=== PATIENT | male | born 1985 | race Caucasian/White ===

== ENCOUNTER 2017-09-14 10:46 | Emergency (ER) | payer SELFPAY ==
--- NOTE | 2017-09-14 11:36 | EDM.PDOC ---
ED HPI GENERAL MEDICAL PROBLEM - General Chief Complaint: ENT Problem Stated Complaint: DENTAL COMPLAINT Time Seen by Provider: 09/14/17 11:22 Source of Information: Reports: Patient History Limitations: Reports: No Limitations - History of Present Illness INITIAL COMMENTS - FREE TEXT/NARRATIVE: 32-year-old male presents for evaluation and treatment of dental pain. Patient reports dental pain all started 2 years ago when he was hit at work with a log chain. Sounds like he seen the dentist one time since this occurred. He had a cap Placed to tooth #9. Patient reports he is about 4 days ago he helped significant dental pain across his maxilla. He states that yesterday his face was swollen. He reports pain across his maxilla and extending up into his left ear. No nausea, vomiting or fevers. He states that he has not been feeling well. He has been taking Tylenol and Motrin without much relief. Duration: Day(s): (4) Upper Tooth/Teeth Pain Score (Numeric/FACES): 8 - Related Data Allergies Allergy/AdvReac Type Severity Reaction Status Date / Time diphenhydramine Allergy Rash Verified 09/14/17 11:06 [From Benadryl] ketorolac [From Toradol] Allergy Other Verified 09/14/17 11:06 Home Meds: Home Meds Amoxicillin/Clavulanate K [Augmentin 875 MG/125 MG] 1 tab PO Q12HR #20 tablet [Rx] Chlorhexidine Gluconate 15 ml MM BID #1 bottle 09/14/17 [Rx] Past Medical History HEENT History: Reports: Other (See Below) Other HEENT History: dental issues Genitourinary History: Reports: Other (See Below) Other Genitourinary History: kidney failure Social & Family History - Tobacco Use Smoking Status *Q: Current Every Day Smoker Years of Tobacco use: 20 Packs/Tins Daily: 1 - Caffeine Use Caffeine Use: Reports: Energy Drinks, Soda - Recreational Drug Use Other Recreational Drug Type: 9 years ago did drugs-on a medication now like suboxin ED ROS ENT - Review of Systems Review Of Systems: See Below Constitutional: Reports: Malaise. Denies: Fever, Chills HEENT: Reports: Dental Pain (maxilla), Ear Pain (left ) GI/Abdominal: Denies: Nausea, Vomiting ED EXAM, ENT - Physical Exam Exam: See Below Exam Limited By: No Limitations General Appearance: Alert, WD/WN, No Apparent Distress Eye Exam: Bilateral Eye: Normal Inspection Ears: Normal External Exam, Normal Canal, Normal TMs (right), TM Obscured by Cerumen (left) Nose: Normal Inspection Mouth/Throat: Normal Inspection, Dental Tenderness, Other (gingivitis, multiple carries present; #9 is broken, multiple missing teeth). No: Dental Abcess Neck: Normal Inspection Respiratory/Chest: No Respiratory Distress, Lungs Clear, Normal Breath Sounds Cardiovascular: Normal Peripheral Pulses, Regular Rate, Rhythm, No Murmur Neurological: Alert, Oriented, Normal Cognition Psychiatric: Normal Affect, Normal Mood Skin: Warm, Dry, Normal Color Course - Vital Signs Last Recorded V/S: Last Vital Signs Temp 36.0 C 09/14/17 11:10 Pulse 64 09/14/17 11:10 Resp 20 09/14/17 11:10 BP 119/77 09/14/17 11:10 Pulse Ox 96 09/14/17 11:10 - Orders/Labs/Meds Orders: Active Orders 24 hr Category Date Time Status Ear Irrigation [RC] ASDIRECTED Care 09/14/17 11:40 Active - Re-Assessments/Exams Free Text/Narrative Re-Assessment/Exam: 09/14/17 12:20 I was unable to remove the impacted cerumen to the left ear with an ear curette. Nursing staff was successfully able to remove cerumen from both ears with irrigation. He states at first he felt a little dizzy but this is now improved. I was then able to visualize both tympanic membranes. No infection noted. I'll start him on Augmentin for suspected dental infection and some Peridex for the gingivitis. He is instructed to see dental services as soon as he is able to. Discharge instructions as documented. Departure - Departure Time of Disposition: 12:21 Disposition: Home, Self-Care 01 Clinical Impression: Impacted cerumen of left ear, Dental infection - Discharge Information Prescriptions: Amoxicillin/Clavulanate K [Augmentin 875 MG/125 MG] 1 tab PO Q12HR #20 tablet Chlorhexidine Gluconate 15 ml MM BID #1 bottle Instructions: Earwax Buildup, Dental Abscess, [id number] Referrals: PCP,None [Primary Care Provider] - Forms: ED Department Discharge Additional Instructions: Augmentin 1 tab twice a day for 10 days. Take this medication with food. This is an antibiotic. It can be hard in your stomach. Recommend starting an over the counter probiotic to help reduce side effects. Side effects include upset stomach, nausea and diarrhea. Use the mouth solution twice a day. Swish the solution for 30 seconds and spit. This will help prevent future infection and will help with gingivitis. [id number] Tylenol or Motrin as needed for pain relief. Do not take more than 4 g of Tylenol from all sources in 1 day. Do not take more than 3200 mg of ibuprofen from all sources in one day. may alternate with these medications are maximum pain relief. Follow up with a dentist as soon as you are able superior Please return to the ER if your symptoms change or worsen. - My Orders Last 24 Hours: My Active Orders 09/14/17 11:40 Ear Irrigation [RC] ASDIRECTED - Assessment/Plan Last 24 Hours: My Active Orders 09/14/17 11:40 Ear Irrigation [RC] ASDIRECTED
== END 2017-09-14 12:38 | disposition home or self-care (01) ==
LOC: JD.ED 10:46
DX: K04.7 Periapical abscess without sinus (principal); H61.22 Impacted cerumen, left ear; F17.210 Nicotine dependence, cigarettes, uncomplicated; Z88.6 Allergy status to analgesic agent; Z88.8 Allergy status to other drugs, medicaments and biological substances
CPT/HCPCS: 69209; 69210; 99283; 99283-25

== ENCOUNTER 2017-12-05 07:56 | Emergency (ER) | payer SELFPAY ==
[2017-12-05] MEDS ORDERED: Ondansetron 4 MG/2 ML SDV IVPUSH ONE (08:27)
[2017-12-05] MEDS ORDERED: Sodium Chloride 0.9% 1,000 ML IV SCH (08:30)
--- NOTE | 2017-12-05 08:33 | EDM.PDOC ---
ED HPI GENERAL MEDICAL PROBLEM - General Chief Complaint: Abdominal Pain Stated Complaint: LOWER ABD PAIN Time Seen by Provider: 12/05/17 08:11 Source of Information: Reports: Patient History Limitations: Reports: No Limitations - History of Present Illness INITIAL COMMENTS - FREE TEXT/NARRATIVE: The patient states that he suffers from chronic constipation. He developed abdominal pain with his constipation is past 11/30/2017. He drank half a bottle of milk of magnesia, and had relief of his constipation by Friday morning , 12/01/2017. He states that he took an herbal stool laxative following his bowel movement. He states that he fell while on 12/02/2017, but then on Friday, 2017 he developed bilateral lower abdominal pain, initially greater on the left than the right, but by yesterday morning, 12/04/2017, the pain had migrated to the right lower quadrant, where it remains. The pain does not migrate. It is sharp and crampy in character. It has been constant, but progressively getting worse. He has had nausea since last night, but no emesis. He had diarrhea yesterday, but no bowel movement today. No urinary symptoms. No recent fever. No prior similar symptoms. The patient's last oral solid food was around 22:00 last night. The patient acknowledges that he has a history of heroin and opioid abuse, and therefore does not want to be given opioids. The patient does not have a PCP. Right Lower Abdomen Pain Score (Numeric/FACES): 9 - Related Data Allergies Allergy/AdvReac Type Severity Reaction Status Date / Time diphenhydramine Allergy Rash Verified 12/05/17 08:20 [From Benadryl] ketorolac [From Toradol] Allergy Other Verified 12/05/17 08:20 Home Meds: Home Meds . [No Known Home Meds] 10/18/17 [History] Past Medical History Genitourinary History: Reports: Renal Calculus Psychiatric History: Reports: Addiction (opiates) - Past Surgical History HEENT Surgical History: Reports: Oral Surgery ([place] teeth extraction) Male Surgical History: Reports: Ureteral Stent (many) Social & Family History - Family History Family Medical History: Noncontributory - Tobacco Use Smoking Status *Q: Current Every Day Smoker Years of Tobacco use: 18 Packs/Tins Daily: 1 - Caffeine Use Caffeine Use: Reports: Coffee - Alcohol Use Alcohol Use History: Yes Alcohol Use Frequency: Rarely - Recreational Drug Use Recreational Drug Use: Yes Drug Use in Last 12 Months: No Recreational Drug Type: Reports: Heroin (last 2012), Other (see below) (Opioids , last 2012) Other Recreational Drug Type: states was addicted to Heroin and pain pills, quit 4 yrs ago. - Living Situation & Occupation Living situation: Reports: Single, Alone Occupation: Employed ([employer]) ED ROS GENERAL - Review of Systems Review Of Systems: ROS reveals no pertinent complaints other than HPI. ED EXAM, GI/ABD - Physical Exam Exam: See Below Exam Limited By: No Limitations General Appearance: Alert, WD/WN, Mild Distress (Appears uncomfortable) Eyes: Bilateral: Normal Appearance, EOMI Ears: Normal External Exam, Hearing Grossly Normal Nose: Normal Inspection, No Blood Throat/Mouth: Normal Inspection, Normal Lips, Normal Voice, No Airway Compromise Head: Atraumatic, Normocephalic Neck: Normal Inspection, Full Range of Motion Respiratory/Chest: No Respiratory Distress, Lungs Clear, Normal Breath Sounds, No Accessory Muscle Use Cardiovascular: Normal Peripheral Pulses, Regular Rate, Rhythm, No Gallop, No JVD, No Murmur, No Rub GI/Abdominal Exam: Normal Bowel Sounds (active), Soft, No Organomegaly, No Distention, No Abnormal Bruit, No Mass, Tender (Right lower quadrant only. Nontender elsewhere.) (Male) Exam: Deferred Rectal (Males) Exam: Deferred Back Exam: Normal Inspection, Full Range of Motion. No: CVA Tenderness (L), CVA Tenderness (R) Extremities: Normal Inspection, Normal Range of Motion, No Pedal Edema, Normal Capillary Refill Neurological: Alert, Oriented, Normal Cognition, No Motor/Sensory Deficits Psychiatric: Normal Affect Skin Exam: Warm, Dry, Intact, Normal Color, No Rash, Tattoo(s) (numerous) Course - Vital Signs Last Recorded V/S: Last Vital Signs Temp 36.3 C 12/05/17 08:05 Pulse 84 12/05/17 08:05 Resp 20 12/05/17 08:05 BP 109/79 12/05/17 08:05 Pulse Ox 100 12/05/17 08:05 - Orders/Labs/Meds Orders: Active Orders 24 hr Category Date Time Status Sodium Chloride 0.9% [Normal Saline] 1,000 ml Med 12/05/17 08:30 Active IV ASDIRECTED Medication Orders Sodium Chloride (Normal Saline) 1,000 mls @ 150 mls/hr IV ASDIRECTED GALA Last Admin: 12/05/17 08:35 Dose: 150 mls/hr Labs: Laboratory Tests 12/05/17 12/05/17 12/05/17 Range/Units 08:10 08:10 09:45 WBC 6.93 (4.23-9.07) K/mm3 RBC 5.30 (4.63-6.08) M/mm3 Hgb 15.0 (13.7-17.5) gm/L Hct 45.0 (40.1-51.0) % MCV 84.9 (79.0-92.2) fl MCH 28.3 (25.7-32.2) pg MCHC 33.3 (32.2-35.5) g/dl RDW Std Deviation 38.6 (35.1-43.9) fL Plt Count 146 L (163-337) K/mm3 MPV 10.7 (9.4-12.3) fl Neutrophils % (Manual) 69 H (40-60) % Band Neutrophils % 4 (0-10) % Lymphocytes % (Manual) 25 (20-40) % Atypical Lymphs % 0 % Monocytes % (Manual) 1 L (2-10) % Eosinophils % (Manual) 1 (0.8-7.0) % Basophils % (Manual) 0 L (0.2-1.2) Platelet Estimate Adequate RBC Morph Comment Normal Sodium 140 (136-145) mEq/L Potassium 4.6 (3.5-5.1) mEq/L Chloride 102 (98-107) mEq/L Carbon Dioxide 29 (21-32) mEq/L Anion Gap 13.6 (5-15) BUN 18 (7-18) mg/dL Creatinine 1.1 (0.7-1.3) mg/dL Est Cr Clr Drug Dosing 91.92 mL/min Estimated GFR (MDRD) > 60 (>60) mL/min BUN/Creatinine Ratio 16.4 (14-18) Glucose 94 (74-106) mg/dL Calcium 9.5 (8.5-10.1) mg/dL Total Bilirubin 0.8 (0.2-1.0) mg/dL AST 25 (15-37) U/L ALT 39 (16-63) U/L Alkaline Phosphatase 75 (46-116) U/L Total Protein 7.9 (6.4-8.2) g/dl Albumin 4.3 (3.4-5.0) g/dl Globulin 3.6 gm/dL Albumin/Globulin Ratio 1.2 (1-2) Lipase 61 L (73-393) U/L Urine Color Yellow (Yellow) Urine Appearance Clear (Clear) Urine pH 7.0 (5.0-8.0) Ur Specific [place] 1.015 (1.005-1.030) Urine Protein Negative (Negative) Urine Glucose (UA) Negative (Negative) Urine Ketones Negative (Negative) Urine Occult Blood Negative (Negative) Urine Nitrite Negative (Negative) Urine Bilirubin Negative (Negative) Urine Urobilinogen 0.2 (0.2-1.0) Ur Leukocyte Esterase Negative (Negative) Urine RBC Not seen (0-5) /hpf Urine WBC Not seen (0-5) /hpf Ur Epithelial Cells Not seen (0-5) /hpf Urine Bacteria Not seen (FEW) /hpf Urine Mucus Not seen (FEW) /hpf Meds: Medications Generic Name Dose Route Start Last Admin Trade Name Freq PRN Reason Stop Dose Admin Sodium Chloride 1,000 mls @ 150 mls/hr 12/05/17 08:30 12/05/17 08:35 Normal Saline IV 150 mls/hr ASDIRECTED GALA Administration Discontinued Medications Generic Name Dose Route Start Last Admin Trade Name Freq PRN Reason Stop Dose Admin Diatrizoate Meglum/Diatrizoate Sod 90 ml 12/05/17 09:18 12/05/17 09:34 Gastrografin 37% PO 12/05/17 09:19 90 ml ONETIME ONE Administration Ibuprofen 600 mg 12/05/17 10:35 Motrin PO 12/05/17 10:36 ONETIME ONE Iopamidol 100 ml 12/05/17 09:18 12/05/17 09:34 Isovue-300 (61%) IVPUSH 12/05/17 09:19 100 ml ONETIME ONE Administration Ondansetron HCl 4 mg 12/05/17 08:27 12/05/17 08:34 Zofran IVPUSH 12/05/17 08:28 4 mg ONETIME ONE Administration Sodium Chloride 10 ml 12/05/17 09:18 12/05/17 09:34 Saline Flush FLUSH 12/05/17 09:19 10 ml ONETIME ONE Administration - Re-Assessments/Exams Free Text/Narrative Re-Assessment/Exam: 12/05/17 08:29 With significant right lower quadrant tenderness, I'm concerned about appendicitis. I ordered blood work, urinalysis, and a CT scan of the abdomen and pelvis. I ordered Zofran and IV fluid, however, the patient requests no narcotics, given his history of opioid abuse. Since he reports an allergy to Toradol (causes him to become agitated), at this time, I have no treatment options for his pain, however, the patient states that he does not want anything. 12/05/17 10:24 CT of the abdomen and pelvis with oral and IV contrast is read by Dr. Stinson as: 1. Several loops of small bowel within the lower abdomen show wall thickening. Findings presumably representing a nonspecific enteritis. 2. Appendix is seen and appears normal. 3. Several low density lesions within the upper right lobe of the liver most likely due to minimal cysts. 4. No additional abnormality is seen on CT study of the abdomen and pelvis. 12/05/17 10:37 Test results discussed with the patient. As above, it appears that the patient has enteritis. As he has no fever or elevated WBC count, this is likely viral in etiology. Treatment includes Tylenol or ibuprofen as needed. I explained that antibiotics will not be of benefit. Departure - Departure Time of Disposition: 10:29 Disposition: Home, Self-Care 01 Condition: Good Clinical Impression: Enteritis - Discharge Information Referrals: PCP,None [Primary Care Provider] - Forms: ED Department Discharge Additional Instructions: You were seen in the emergency room for right lower abdominal pain and nausea. Workup in the ER included blood work, a urinalysis, and a CT scan of your abdomen and pelvis. The CT scan found some swelling of some of your small intestine, a condition known as enteritis. This is likely caused by a virus. The remainder of your workup was unremarkable. Unfortunately, there are no medicines to treat viral enteritis - it will have to run its course. We recommend you take [id number] Tylenol or ibuprofen as needed for discomfort. If any other problems, please do not hesitate to return to the ER. - My Orders Last 24 Hours: My Active Orders 12/05/17 08:30 Sodium Chloride 0.9% [Normal Saline] 1,000 ml IV ASDIRECTED - Assessment/Plan Last 24 Hours: My Active Orders 12/05/17 08:30 Sodium Chloride 0.9% [Normal Saline] 1,000 ml IV ASDIRECTED
[2017-12-05] MEDS ORDERED: Iopamidol 612 MG/ML 100 ML Bottle IVPUSH ONE (09:18)
[2017-12-05] MEDS ORDERED: Sodium Chloride 0.9% 10 ML Syringe FLUSH ONE (09:18)
[2017-12-05] MEDS ORDERED: Diatrizoate Meglumine/Diatrizoate Sodium 37% 120 ML Bottle PO ONE (09:18)
--- NOTE | 2017-12-05 10:02 | CT ---
CT abdomen and pelvis Technique: Multiple axial sections were obtained from above the dome of the diaphragm inferiorly through the pubic symphysis. Intravenous and oral contrast was utilized. Delayed images were also obtained through the bladder. Comparison: No previous CT exam. Findings: Appendix is seen and appears normal in size. Visualized lung bases are clear. Several small low-density lesions are seen within the upper right lobe of the liver which are nonspecific due to their small size but most likely represent minimal cysts. No additional abnormality is seen within the liver. Spleen measures at the upper limits of normal at 12.9 cm. Kidneys show symmetric contrast enhancement without hydronephrosis or mass. Delayed images shows contrast within the distal ureters and within the bladder. Pancreas is within normal limits. Gallbladder contains no calcified gallstones. Aorta shows no aneurysmal dilatation. No retroperitoneal adenopathy or mesenteric abnormalities are seen. No pelvic mass or adenopathy is seen. Several loops of small bowel within the lower abdomen shows wall thickening. Other bowel appears normal. Bone window settings were reviewed which appear within normal limits for the patient's age. Impression: 1. Several loops of small bowel within the lower abdomen show wall thickening. Findings presumably representing a nonspecific enteritis. 2. Appendix is seen and appears normal. 3. Several low density lesions within the upper right lobe of the liver most likely due to minimal cysts. 4. No additional abnormality is seen on CT study of the abdomen and pelvis. Diagnostic code #3
[2017-12-05] MEDS ORDERED: Ibuprofen 600 MG Tab PO ONE (10:35)
== END 2017-12-05 11:10 | disposition home or self-care (01) ==
LOC: JD.ED 07:56
DX: K52.9 Noninfective gastroenteritis and colitis, unspecified (principal); F17.210 Nicotine dependence, cigarettes, uncomplicated; Z88.5 Allergy status to narcotic agent; Z88.8 Allergy status to other drugs, medicaments and biological substances; Z88.6 Allergy status to analgesic agent
CPT/HCPCS: 36415; 74177; 80053; 81001; 83690; 85025; 96361; 96374; 99284; A9270; J2405; J7040; J7050; Q9963; Q9967